=== PATIENT | female | born 1965 | race Caucasian/White ===

== ENCOUNTER 2018-11-03 09:04 | Outpatient (CLI) | payer OTHER ==
[~2018-11-03 09:04] MED LIST: CHOL500045 PO; MULT-642 PO; NAPR220C2 PO; NONE PER PT; VITA1CAP PO
== END 2018-11-03 23:59 | disposition home or self-care (01) ==
LOC: CFH 09:04
PROVIDERS: ATTEND Family Medicine
DX: Z02.9 Encounter for administrative examinations, unspecified (principal)